=== PATIENT | female | born 2000 ===

== ENCOUNTER → 2021-09-04 | Outpatient (REF) | payer OTHER ==
[2021-09-04 12:13] LABS: APPEARANCE, URINE HAZY (CLEAR); BACTERIA, URINE AUTO 2+ (NEGATIVE); BILIRUBIN, URINE AUTO NEGATIVE (NEGATIVE); BLOOD, URINE BLOOD NEGATIVE (NEGATIVE); COLOR, URINE AMBER (YELLOW); GLUCOSE, URINE (UA) AUTO NEGATIVE (NEGATIVE); KETONE, URINE AUTO NEGATIVE (NEGATIVE); LEUKOCYTE ESTERASE, URINE AUTO TRACE (NEGATIVE); MUCUS, URINE SMALL (NEGATIVE); NITRITE, URINE AUTO NEGATIVE (NEGATIVE); PROTEIN, URINE AUTO NEGATIVE (NEGATIVE); RBC, URINE AUTO 14 /HPF (0-3); SPECIFIC GRAVITY URINE AUTO 1.024 (1.002-1.035); SQUAMOUS EPITHELIAL CELL UR AU 5 /HPF (0-6); UROBILINOGEN, URINE AUTO 0.2 mg/dL (0.0-2.0); WBC, URINE AUTO 8 /HPF (0-3)
== END ==
LOC: M LAB REF 11:29
PROVIDERS: ATTEND Physician Assistant Medical
DX: N39.0 Urinary tract infection, site not specified (principal)

== ENCOUNTER 2022-06-23 16:45 | Outpatient (CLI) | payer OTHER ==
[~2022-06-23] VITALS: Ht 172.7 cm; Wt 102.0 kg
[2022-06-23 17:08] VITALS: BP 115/78
[2022-06-23] MEDS ORDERED: METF10004 PO (17:24)
[2022-06-23] MEDS ORDERED: PRENTAB9 PO (17:24)
[2022-06-23] MEDS ORDERED: HOME MED LIST COMPLETE! XX SCH (17:30)
== END 2022-06-23 18:00 | disposition home or self-care (01) ==
LOC: M LDO 16:45
PROVIDERS: ATTEND Registered Nurse
DX: O36.8330 Maternal care for abnormalities of the fetal heart rate or rhythm, third trimester, not applicable or unspecified (principal); Z3A.36 36 weeks gestation of pregnancy
CPT/HCPCS: 59025; G0378; G0463

== ENCOUNTER 2022-06-30 02:52 | Inpatient (IN) | payer OTHER ==
[~2022-06-30] VITALS: Ht 172.7 cm; Wt 104.3 kg
[2022-06-30] VITALS (56 sets, daily range): BP systolic 106–186; BP diastolic 61–110
[~2022-06-30 02:52] MED LIST: METF10004 PO; PRENTAB9 PO
[2022-06-30] MEDS ORDERED: HOME MED LIST COMPLETE! XX SCH (03:20)
[2022-06-30] MEDS ORDERED: PENICILLIN G POTASSIUM IV 5 MU in D5W MINI-BAG PLUS 100 ML IV STA (03:36)
[2022-06-30] MEDS ORDERED: OXYTOCIN INJ 10 UNITS/ML VIAL (J2590) IV PRN (03:40)
[2022-06-30] MEDS ORDERED: OXYTOCIN DRIP 30 UNITS in IV 1 EA IV PRN ×4 (03:40)
[2022-06-30] MEDS ORDERED: TRANEXAMIC ACID INJection 1,000 MG in NS 100 ML IV PRN (03:40)
[2022-06-30] MEDS ORDERED: LACTATED RINGER'S 1000 ML IV ONE (03:40)
[2022-06-30 04:17] LABS: HEMATOCRIT 37.6 % (36.0-47.0); HEMOGLOBIN 12.9 g/dl (12.0-15.5); MEAN CORPUSCULAR HEMOGLOBIN 29.5 pg (27.0-33.0); MEAN CORPUSCULAR HGB CONC 34.3 g/dl (32.0-36.5); PLATELET COUNT, AUTOMATED 199 10^3/uL (150-450); RED BLOOD COUNT 4.37 10^6/uL (4.00-5.40); WHITE BLOOD COUNT 11.2 10^3/uL (4.0-10.0)
[2022-06-30] MEDS: LR 1,000 ML IV SCH ×3 (06:46→15:54)
[2022-06-30] MEDS ORDERED: FENTANYL 2MCG/ML ROPIVACAINE 0.2% IN 0.9% NACL 100ML IVBAG As Ordered ONE (07:12)
[2022-06-30] MEDS ORDERED: ONDANSETRON 4MG 2ML VIAL IV PRN (08:10)
[2022-06-30] MEDS ORDERED: NALOXONE INJ 0.4MG/1ML VIAL (J2310 PER 1MG) IV PRN (08:10)
[2022-06-30] MEDS ORDERED: ePHEDrine SULFATE 25 MG/5 ML(5MG/ML) SYRINGE IVP PRN (08:10)
[2022-06-30] MEDS ORDERED: EPIDURAL/PCA KEYS XX PRN (08:10)
[2022-06-30] MEDS ORDERED: diphenhydrAMINE 50MG/ML VIAL (J1200) IV PRN (08:10)
[2022-06-30] MEDS ORDERED: LR 500 ML IV PRN (08:10)
[2022-06-30] MEDS: PENICILLIN G POTASSIUM IV 2.5 MU in IV 1 EA IV SCH ×4 (08:46→20:23)
[2022-06-30] MEDS ORDERED: OXYTOCIN DRIP 30 UNITS in IV 1 EA IV SCH (09:20)
[2022-06-30] MEDS ORDERED: LR 1,000 ML IV SCH (09:20)
[2022-06-30] MEDS: FENTANYL/ROPIVACAINE/NACL BAG 100 ML EPIDURAL SCH ×2 (09:37→17:30)
[2022-07-01] VITALS (14 sets, daily range): BP systolic 102–169; BP diastolic 56–95
[2022-07-01] MEDS: LR 1,000 ML IV SCH (00:19)
[2022-07-01] MEDS: PENICILLIN G POTASSIUM IV 2.5 MU in IV 1 EA IV SCH ×2 (00:25→06:57)
[2022-07-01] MEDS: FENTANYL/ROPIVACAINE/NACL BAG 100 ML EPIDURAL SCH (02:34)
[2022-07-01] MEDS ORDERED: OXYTOCIN 30 UNITS IN 0.9% NaCl 500ML IV BAG (J2590) As Ordered ONE (07:01)
[2022-07-01] MEDS ORDERED: RHOGAM 300 MCG (1500 IU) INJ (J2790) IM SCH (07:15)
[2022-07-01] MEDS ORDERED: METHYLERGONOVINE MALEATE 0.2 MG TAB PO PRN (07:15)
[2022-07-01] MEDS ORDERED: DIBUCAINE 1% OINTMENT 30GM TOP PRN (07:15)
[2022-07-01] MEDS ORDERED: MOM 30ML SUSPENSION UDC PO PRN (07:15)
[2022-07-01] MEDS: PRENATAL VITAMINS CHEWABLE TABLET PO SCH (08:32)
[2022-07-01] MEDS: IBUPROFEN 800 MG TAB PO PRN ×2 (08:33→17:09)
[2022-07-01] MEDS: ACETAMINOPHEN 500 MG TAB PO PRN (17:54)
[2022-07-01] MEDS: DOCUSATE SODIUM 100MG CAPSULE PO PRN (17:54)
[2022-07-02] MEDS: IBUPROFEN 800 MG TAB PO PRN (01:35)
[2022-07-02 05:00] VITALS: BP 107/53
[2022-07-02] MEDS: PRENATAL VITAMINS CHEWABLE TABLET PO SCH (11:34)
[2022-07-02] MEDS: ACETAMINOPHEN 500 MG TAB PO PRN (15:30)
[2022-07-02 17:59] VITALS: BP 132/68
[2022-07-02] MEDS: DOCUSATE SODIUM 100MG CAPSULE PO PRN (21:07)
[2022-07-03] MEDS: ACETAMINOPHEN 500 MG TAB PO PRN (00:46)
[2022-07-03 06:00] VITALS: BP 130/66
[2022-07-03] MEDS: PRENATAL VITAMINS CHEWABLE TABLET PO SCH (07:43)
[2022-07-03] MEDS ORDERED: MEASLES,MUMPS,RUBELLA VACCINE INJ (MMR-II) (90707) SC.IMMUN ONE (09:00)
== END 2022-07-03 15:00 | disposition home or self-care (01) | DRG 807 ==
LOC: M LDO 02:52 → M LDI 03:30 → M OBS 07-01 09:18
PROVIDERS: ADMIT Obstetrics & Gynecology; ATTEND Obstetrics & Gynecology
PROC: 10907ZC Drainage of Amniotic Fluid, Therapeutic from Products of Conception, Via Natural or Artificial Opening (ICD-10-PCS; 2022-06-30)
PROC: 10E0XZZ Delivery of Products of Conception, External Approach (ICD-10-PCS; principal; 2022-07-01)
PROC: 0KQM0ZZ Repair Perineum Muscle, Open Approach (ICD-10-PCS; 2022-07-01)
DX: O70.1 Second degree perineal laceration during delivery (principal); Z37.0 Single live birth; O69.81X0 Labor and delivery complicated by cord around neck, without compression, not applicable or unspecified; Z3A.37 37 weeks gestation of pregnancy